=== PATIENT | female | born 1995 | race Caucasian/White ===

== ENCOUNTER 2023-04-28 21:07 | Emergency (ER) | payer OTHER, SELFPAY ==
[2023-04-28] VITALS (7 sets, daily range): BP systolic 94–126; BP diastolic 52–85; PULSE 64–76; RESP 16–20; TEMP 36.8–37.1; O2SAT 97–100; BMI 27.2
--- NOTE | 2023-04-28 21:35 | ED.ABDPAIN ---
HPI - Abdominal Pain General Chief Complaint: Abdominal Pain Stated Complaint: back and abd pain Time Seen by Provider: 04/28/23 21:33 History of Present Illness HPI narrative: Healthy young woman who was sick with a fever and congestion and cough a few days ago but that illness has mostly resolved. She is had nausea but no vomiting. And then this evening she developed severe right upper quadrant pain radiating through to Her back with severe nausea and gagging. No dysuria urgency or frequency. No previous episodes of same. No previous abdominal surgeries. She does not believe that she is . Related Data Allergies Allergy/AdvReac Type Severity Reaction Status Date / Time No Known Drug Allergies Allergy Verified 04/28/23 21:38 Patient History Social History Smoking Status: Current every day smoker Exam Narrative Exam Narrative: GENERAL: Hovering over an emesis bag, looking very uncomfortable. HEAD: Atraumatic. Normocephalic. EYES: Sclera are clear without icterus. Extraocular movements are full. ENT: No rhinorrhea. Oropharynx is moist. Mouth exam is benign. NECK: Supple. Full range of motion. CARDIOVASCULAR: Normal rate RESPIRATORY: no respiratory distress GASTROINTESTINAL: No CVA tenderness. Right upper quadrant tenderness without guarding or mass. No right lower or left lower abdominal tenderness no midepigastric tenderness. EXTREMITIES: No edema, full range of motion. No obvious trauma. BACK: Normal inspection, no CVA tenderness. NEURO: Nonfocal examination, normal speech, normal gait. SKIN: No rash or erythema of visible areas PSYCH: Normally oriented. Normal range of affect. Appropriate behavior Initial Vital Signs Initial Vital Signs: Vital Signs Temperature 98.8 F 04/28/23 21:15 Pulse Rate 76 04/28/23 21:15 Respiratory Rate 16 04/28/23 21:15 Blood Pressure 126/85 04/28/23 21:15 Pulse Oximetry 100 04/28/23 21:15 Oxygen Delivery Method Room Air 04/28/23 21:15 Course Orders Ordered: ED Orders 04/28/23 21:40 Complete Blood Count AUTO DIFF Stat Comprehensive Metabolic Panel Stat Lipase Stat 04/28/23 21:58 Test Urine Stat Urinalysis and Microscopic Stat Discontinued Medications Sodium Chloride (Normal Saline 0.9%) 1,000 mls @ 1,000 mls/hr IV BOLUS ONE Stop: 04/28/23 22:36 Last Infusion: 04/28/23 22:52 Dose: Infused Documented By: Admin: 04/28/23 21:52 Dose: 1,000 mls/hr Documented By: MAUREEN Ketorolac Tromethamine (Ketorolac 30 Mg/Ml Vial) 30 mg IV NOW ONE Stop: 04/28/23 21:38 Last Admin: 04/28/23 21:54 Dose: 30 mg Documented By: MAUREEN Ondansetron HCl (Ondansetron 4 Mg/2 Ml Inj) 4 mg IV NOW ONE Stop: 04/28/23 21:38 Last Admin: 04/28/23 21:53 Dose: 4 mg Documented By: MAUREEN Pantoprazole Sodium (Pantoprazole 40 Mg Vial) 40 mg IV NOW ONE Stop: 04/28/23 21:38 Last Admin: 04/28/23 21:55 Dose: 40 mg Documented By: MAUREEN Vital Signs Vital signs: Vital Signs - 8 hr 04/28/23 21:15 04/28/23 22:11 Temperature 98.8 F Pulse Rate 76 67 Respiratory Rate 16 18 Blood Pressure 126/85 119/65 Pulse Oximetry 100 100 Oxygen Delivery Method Room Air MDM - Abdominal Pain Lab Data 04/28/23 21:40 04/28/23 21:40 Labs: Lab Results 04/28/23 04/28/23 Range/Units 21:40 21:58 WBC 9.6 (4.5-11.0) X10^3/uL RBC 4.70 (4.0-5.2) X10^6/uL Hgb 14.0 (12.0-16.0) g/dL Hct 41.1 (36-46) % MCV 87.5 (80-100) fL MCH 29.7 (26-34) PG MCHC 33.9 (30-36) % RDW 13.0 (11.6-14.8) % Plt Count 263 (150-400) X10^3/uL Neut % (Auto) 71.3 (50-75) % Lymph % (Auto) 20.8 L (25-40) % [place] % (Auto) 6.9 (3-14) % Eos % (Auto) 0.5 L (2-4) % Baso % (Auto) 0.5 (0-2) % Neut # (Auto) 6800 (4023-3836) /uL Lymph # (Auto) 2000 (9258-6355) /uL [place] # (Auto) 700 (0-900) /uL Eos # (Auto) 100 (0-450) /uL Baso # (Auto) 100 (0-100) /uL Sodium 136 L (137-145) mmol/L Potassium 4.6 (3.4-5.1) mmol/L Chloride 104 (98-107) mmol/L Carbon Dioxide 25 (22-32) mmol/L BUN 10 (7-17) mg/dL Creatinine 0.69 (0.52-1.04) mg/dL Estimated GFR > 60 (>60) mL/min BUN/Creatinine Ratio 14.5 (6-22) Glucose 98 (70-100) mg/dL Calcium 9.2 (8.4-10.2) mg/dL Total Bilirubin 0.4 (0.2-1.3) mg/dL AST 23 (14-36) IU/L ALT 16 (<35) IU/L Alkaline Phosphatase 58 (38-126) U/L Total Protein 7.5 (6.3-8.2) g/dL Albumin 4.5 (3.5-5.0) g/dL Globulin 3.0 (1.7-4.1) g/dL Albumin/Globulin Ratio 1.5 (1.0-2.8) Lipase 125 (23-300) U/L Urine Color Yellow Urine Appearance Sl cloudy Urine pH 7.5 (4.5-8.0) Ur Specific [place] 1.015 (1.000-1.035) Urine Protein Trace H (Negative) Urine Glucose (UA) Negative (Negative) g/dL Urine Ketones Negative (NEGATIVE) Urine Occult Blood 3+ H (Negative) Urine Nitrate Negative (Negative) Urine Bilirubin Negative (NEGATIVE) Urine Urobilinogen 0.2 (0.2) E.U./dL Ur Leukocyte Esterase Negative (NEGATIVE) Urine RBC 30-100/hpf H (0-5/HPF) Urine WBC None seen (0-5/HPF) Ur Squamous Epith Cells 10-30 /hpf H (0-5/HPF) Urine Bacteria Moderate (10-30) H (None) Urine Mucus 1+ H (Negative) Ur Culture Indicated? Cult not indicated Urine Test Negative (Negative) MDM Narrative Medical decision making narrative: hematuria in a young woman with severe right flank pain without evidence of UTI and symptoms very consistent with urinary tract stone seems sufficient evidence to use this as a working diagnosis for now. I do not think definitive imaging is required given her resolution of symptoms with modest intervention and lack of leukocytosis or other severe symptoms. Her physical exam though demonstrating some right upper quadrant tenderness really was not remarkable for severe pain. Though that was the location of her pain she did not seem to be having worsening pain with palpation. We had a discussion about definitive imaging and she is in agreement with deferring this for now. Discharge Plan Departure Patient Disposition: Home Clinical Impression: Calculus of kidney, Renal colic on right side Instructions: DI for Kidney Stones Activity Restrictions/Additional Instructions: though we have notProved it definitively, it seems almost certain that the pain you are experiencing is from a stone in the ureter which is the tube that runs from theKidney to the bladder. This is commonly referred to his kidney stones. Interestingly, kidney stones never cause pain only stones that migrate from the kidney to the bladder through the ureter. You should return to the ED in the coming hours or days if you develop pain so severe that 1000 mg of Tylenol combined with 600 mg ibuprofen taken every 6 hours is insufficient to give you reasonable relief. You should also return to the ED if you develop fever associated with this flank pain. Otherwise, follow-up with your doctor in a week if the symptoms are not completely resolved. To prevent this in the future the best treatment of all is drinking plenty of fluids to keep your urine dilute. thank you for trusting us with your care today. I did discuss with you the possibility of trying to prove this diagnosis with CT imaging butI felt that it was probably best to forego this given the fact that everything else seems to fit so that we could avoidExposing you to the radiation of a CT scan. Stand Alone Forms: Patient Portal/API
[2023-04-28 21:49] LABS: Add Manual Diff / Slide Review NO; Basophils Absolute Auto 100 /uL (0-100); Basophils Percent Auto 0.5 % (0-2); Eosinophils Absolute Auto 100 /uL (0-450); Eosinophils Percent Auto 0.5 % (2-4); Hematocrit 41.1 % (36-46); Lymphocytes Absolute Auto 2000 /uL (1100-4500); Lymphocytes Percent Auto 20.8 % (25-40); Mean Corpuscular HGB Conc 33.9 % (30-36); Mean Corpuscular Hemoglobin 29.7 PG (26-34); Mean Corpuscular Volume 87.5 fL (80-100); Monocytes Absolute Auto 700 /uL (0-900); Monocytes Percent Auto 6.9 % (3-14); Neutrophils Absolute Auto 6800 /uL (1500-7000); Neutrophils Percent Auto 71.3 % (50-75); Platelet Count 263 X10^3/uL (150-400); White Blood Cell Count 9.6 X10^3/uL (4.5-11.0)
[2023-04-28] MEDS: SODIUM CHLORIDE 0.9% 1,000 ML 1000 ML IV (21:52)
[2023-04-28] MEDS: ONDANSETRON 4 MG/2 ML INJ IV (21:53)
[2023-04-28] MEDS: KETOROLAC 30 MG/ML VIAL IV (21:54)
[2023-04-28] MEDS: PANTOPRAZOLE 40 MG VIAL IV (21:55)
[2023-04-28 22:13] LABS: Bilirubin Urine UA NEGATIVE (NEGATIVE); Color Urine UA YELLOW; Glucose Urine UA NEGATIVE (Negative); Ketones Urine UA NEGATIVE (NEGATIVE); Leukocyte Esterase Urine UA NEGATIVE (NEGATIVE); Nitrite Urine UA NEGATIVE (Negative); Occult Blood Urine UA 3+ (Negative); Protein Urine UA TRACE (Negative); Specific Gravity Urine UA 1.015 (1.000-1.035); Urobilinogen Urine UA 0.2 E.U./dL (0.2)
[2023-04-28 22:15] LABS: Pregnancy Test Urine Negative (Negative)
[2023-04-28 22:18] LABS: Appearance Urine UA SL CLOUDY; pH Urine UA 7.5 (4.5-8.0)
[2023-04-28 22:19] LABS: Alanine Aminotransferase 16 IU/L (<35); Albumin 4.5 g/dL (3.5-5.0); Albumin Globulin Ratio 1.5 (1.0-2.8); Alkaline Phosphatase 58 U/L (38-126); Aspartate Aminotransferase 23 IU/L (14-36); BUN Creatinine Ratio 14.5 (6-22); Bilirubin Total 0.4 mg/dL (0.2-1.3); Blood Urea Nitrogen 10 mg/dL (7-17); Calcium 9.2 mg/dL (8.4-10.2); Carbon Dioxide 25 mmol/L (22-32); Chloride 104 mmol/L (98-107); Estimated Glomerular Filt Rate > 60 mL/min (>60); Glucose 98 mg/dL (70-100); HEMOLYSIS 22 (0-50); Lipase 125 U/L (23-300); Potassium 4.6 mmol/L (3.4-5.1); Sodium 136 mmol/L (137-145); Total Protein 7.5 g/dL (6.3-8.2)
[2023-04-28 22:28] LABS: Bacteria Urine Moderate (10-30); RBC Urine 30-100/HPF (0-5/HPF); Squamous Epithelial Cell Urine 10-30 /HPF (0-5/HPF); WBC Urine None Seen (0-5/HPF)
[2023-04-28 22:29] LABS: Culture Indicated Urine Cult Not Indicated; Mucus Urine 1+ (Negative)
== END 2023-04-28 23:44 | disposition home or self-care (01) ==
PROVIDERS: Emergency Provider Family Medicine Addiction Medicine
DX: N20.0 Calculus of kidney (principal)
CPT/HCPCS: 80053; 81001; 81025; 83690; 85025; 96374; 96375; 99283; C9113; J1885; J2405

== ENCOUNTER → 2023-06-23 16:30 | Outpatient (CLI) | payer OTHER, SELFPAY ==
[2023-06-23 17:44] LABS: Influenza A - CEPHEID Flu A NEGATIVE (NEGATIVE); Influenza B - CEPHEID Flu B NEGATIVE (NEGATIVE); Respiratory Syncytial Virus Negative (Negative)
[2023-06-23 17:53] LABS: COVID-19 CEPHEID 4-PLEX PCR Negative (Negative)
== END ==
PROVIDERS: Visit Provider Nurse Practitioner Family
DX: R05.1 Acute cough (principal)
CPT/HCPCS: 0241U